=== PATIENT | female | born 1985 | race African-American/Black ===

== ENCOUNTER 2021-03-06 12:46 | Emergency (ER) | payer MEDICARE, MEDICAID ==
[~2021-03-06] VITALS: Ht 162.6 cm; Wt 96.0 kg
[2021-03-06 13:18] VITALS: BP 120/83
== END 2021-03-06 15:15 | disposition home or self-care (01) ==
LOC: ER 12:46
DX: M79.671 Pain in right foot (principal); Z91.81 History of falling; G40.909 Epilepsy, unspecified, not intractable, without status epilepticus; F17.210 Nicotine dependence, cigarettes, uncomplicated
CPT/HCPCS: 99281

== ENCOUNTER 2022-06-16 12:01 | Emergency (ER) | payer MEDICAID ==
[~2022-06-16] VITALS: Ht 165.1 cm; Wt 77.0 kg
[2022-06-16] MEDS ORDERED: IBUP-2029 MT (13:50)
[2022-06-16] MEDS ORDERED: PENI500T MT (13:50)
[2022-06-16 14:54] VITALS: BP 127/75
[2022-06-16] MEDS ORDERED: PENICILLIN V POTASSIUM 250MG TABLET PO SCH (18:00)
== END 2022-06-16 14:55 | disposition home or self-care (01) ==
LOC: ER 12:12
DX: K04.7 Periapical abscess without sinus (principal)
CPT/HCPCS: 99283

== ENCOUNTER 2024-03-24 10:33 | Emergency (ER) | payer MEDICAID ==
[~2024-03-24] VITALS: Ht 162.6 cm; Wt 77.1 kg
[~2024-03-24 10:33] MED LIST: IBUP-2029 MT; PENI500T MT
[2024-03-24 10:34] VITALS: O2SAT 98
[2024-03-24 13:49] LABS: CHLORIDE 103 mEq/L (98-107); POTASSIUM 3.2 mEq/L (3.5-5.1); SODIUM 138 mEq/L (136-145)
[2024-03-24 13:50] LABS: CALCIUM 9.2 mg/dL (8.7-10.4); CARBON DIOXIDE 26 mEq/L (21-32)
[2024-03-24 13:54] LABS: EOSINOPHILS % 0.6 % (0.0-5.0); HEMATOCRIT. 36.8 % (36.0-48.0); HEMOGLOBIN. 12.7 g/dL (12.0-16.0); LYMPHOCYTES % 12.2 % (20.0-50.0); MEAN CORPUSCULAR HEMOGLOBIN 33.1 pg (28.0-32.0); MEAN CORPUSCULAR HGB CONC 34.5 g/dL (31.0-37.0); MEAN PLATELET VOLUME 6.9 fl (7.4-10.4); MONOCYTES % 7.5 % (2.0-8.0); NEUTROPHILS % 78.7 % (40.0-76.0); PLATELET 367 x1000/uL (130-400); RED BLOOD CELL COUNT 3.83 mill/uL (4.2-5.4); RED CELL DISTRIBUTION WIDTH 14.1 % (11.6-14.6); WHITE BLOOD COUNT 8.6 x1000/uL (4.5-11.0)
[2024-03-24 13:55] LABS: CREATININE 0.6 mg/dL (0.6-1.0); GLUCOSE 99 mg/dL (70-105); UREA NITROGEN BLOOD 6 mg/dL (9-23)
[2024-03-24 13:57] LABS: ALANINE AMINOTRANSFERASE 12 IU/L (10-49); ALBUMIN 4.3 g/dL (3.2-4.8); ASPARTATE AMINOTRANSFERASE 21 IU/L (<34); BILIRUBIN TOTAL 0.4 mg/dL (0.1-1.0); PROTEIN TOTAL 8.2 g/dL (6.0-8.3)
[2024-03-24] MEDS ORDERED: AMOX1TAB16 MT (18:28)
[2024-03-24 18:54] VITALS: BP 140/82; PULSE 90; RESP 16; TEMP 36.78072; O2SAT 98
[2024-03-24] MEDS ORDERED: IOHEXOL-300 100 ML BOTTLE ONE (23:17)
== END 2024-03-24 18:56 | disposition home or self-care (01) ==
LOC: ER 10:33
DX: R59.0 Localized enlarged lymph nodes (principal); Z79.899 Other long term (current) drug therapy
CPT/HCPCS: 99285; 70491; 80053; 85025; 36415; 71260; Q9967